=== PATIENT | male | born 1995 | race Caucasian/White ===

== ENCOUNTER 2019-07-29 21:26 | Emergency (ER) | payer MEDICAID ==
[~2019-07-29] VITALS: Ht 175.3 cm; Wt 128.4 kg
[~2019-07-29 21:26] MED LIST: ROBITUSSIN
[2019-07-29 21:30] VITALS: BP 110/90
[2019-07-29] MEDS ORDERED: NACL 0.9% 1,000 ML IV ONE (22:02)
[2019-07-29] MEDS ORDERED: LORazepam 2 MG/ML VIAL IVP ONE (22:05)
[2019-07-29] MEDS ORDERED: MORPHINE SULFATE 2 MG/ML SYR IVP ONE (22:05)
[2019-07-29 22:29] LABS: BASOPHILS # (AUTO) 0.1 K/uL (0.00-0.22); BASOPHILS % (AUTO) 0.8 % (0.0-2.0); EOSINOPHILS # (AUTO) 0.1 K/uL (0-0.4); EOSINOPHILS % (AUTO) 2.2 % (0.0-4.0); HEMATOCRIT 30.7 % (36-52); HEMOGLOBIN 9.4 g/dL (12.0-18.0); LYMPHOCYTES # (AUTO) 1.8 K/uL (2.0-11.5); LYMPHOCYTES % (AUTO) 27.5 % (20.5-51.1); MEAN CORPUSCULAR HEMOGLOBIN 20 pg (27-31); MEAN CORPUSCULAR HGB CONC 30 g/dL (33-37); MEAN CORPUSCULAR VOLUME 64.2 fL (80-94); MONOCYTES # (AUTO) 0.6 K/uL (0.8-1.0); NEUTROPHILS % (AUTO) 60.5 % (42.2-75.2); PLATELET COUNT (AUTO) 554 K/uL (140-450); RED BLOOD CELL COUNT(AUTO) 4.78 MIL/uL (4.20-6.10); RED CELL DISTRIBUTION WIDTH 35.4 % (11.6-13.7); WHITE BLOOD COUNT (AUTO) 6.6 K/uL (4.8-10.8)
[2019-07-29 22:53] LABS: ALBUMIN 3.9 g/dL (3.4-5.0); TOTAL BILIRUBIN 0.3 mg/dL (0.0-1.0)
[2019-07-29 23:19] LABS: BARBITURATE, URINE NEG. ng/ml (NEG <=200); BENZODIAZEPINE, URINE NEG. ng/mL (NEG <=200); CANNABINOID, URINE NEG. ng/mL (NEG <=50); COCAINE, URINE NEG. ng/mL (NEG <=300); OPIATE, URINE NEG. ng/mL (NEG <=2000); PHENCYCLIDINE SCREEN,URINE NEG. ng/mL (NEG <=25)
[2019-07-29 23:37] VITALS: BP 110/90
== END 2019-07-29 23:37 | disposition home or self-care (01) ==
LOC: MED 21:26
DX: R10.9 Unspecified abdominal pain (principal); F15.10 Other stimulant abuse, uncomplicated; D64.9 Anemia, unspecified; R11.2 Nausea with vomiting, unspecified; F17.200 Nicotine dependence, unspecified, uncomplicated; Z79.899 Other long term (current) drug therapy; Z71.6 Tobacco abuse counseling
CPT/HCPCS: 36415; 80053; 80305; 83690; 85025; 96361; 96374; 96375; 99283; J2060; J2270; J7030

== ENCOUNTER 2022-09-24 16:02 | Emergency (ER) | payer MEDICAID, OTHER ==
[~2022-09-24] VITALS: Ht 175.3 cm; Wt 127.0 kg
[2022-09-24 16:13] VITALS: BP 146/90
--- NOTE | 2022-09-24 16:15 | NUR ---
27/M BIBA FROM HOME C/O SOB, COUGH, FEVER, AND CHILLS ONSET 4 DAYS AGO. PT REPORTS HX ASTHMA. REPORTS OUT OF INH AT THIS TIME. AFEBRILE AT TRIAGE. PT ALSO REPORTS B/L CHEST PAIN RADIATING TO B/L SHOULDER PMH: ASTHMA, GASTRIC ULCER
--- NOTE | 2022-09-24 16:19 | NUR ---
BIBA BLS TO [facility]
[2022-09-24] MEDS ORDERED: predniSONE 20 MG TAB PO ONE (16:25)
[2022-09-24] MEDS ORDERED: ALBUTEROL HFA MDI 90 MCG/ACTUATION 8 GM INH ONE (16:25)
--- NOTE | 2022-09-24 16:30 | NUR ---
RT AT BEDSIDE FOR INH
[2022-09-24] MEDS ORDERED: ALBU0.0912 INH (16:46)
[2022-09-24] MEDS ORDERED: PRED20TA5 PO (16:46)
== END 2022-09-24 16:55 | disposition home or self-care (01) ==
LOC: MED 16:02
DX: J45.901 Unspecified asthma with (acute) exacerbation (principal); Z79.899 Other long term (current) drug therapy
CPT/HCPCS: 94640; 99283; J3535; J7512